=== PATIENT | male | born 2000 | race Two or more races ===

== ENCOUNTER 2023-05-28 09:20 | Emergency (ER) | payer OTHER ==
[~2023-05-28] VITALS: Ht 185.4 cm; Wt 97.5 kg
[2023-05-28 10:50] LABS: HEMATOCRIT 43.8 % (39.0-48.0); HEMOGLOBIN 14.7 g/dL (13-16.00); MEAN CELL VOLUME 81.7 fL (80.0-100.00); MEAN CORPUSCULAR HEMOGLOBIN 27.4 pg (27.00-32.0); MEAN CORPUSCULAR HGB CONC 33.5 g/dl (32.0-36.0); PLATELET COUNT 307 K/uL (150-450); RED BLOOD COUNT 5.36 M/uL (4.00-6.00); RED CELL DISTRIBUTION WIDTH 15.1 % (11.5-14.5)
[2023-05-28 11:27] LABS: ALBUMIN 2.8 gm/dL (3.4-5.0); BILIRUBIN TOTAL 0.6 mg/dL (0.3-1.2); BILIRUBIN,CONJUGATED 0.39 mg/dL (0.0-0.2); BILIRUBIN,UNCONJUGATED 0.21 mg/dL (0.0-0.6); CALCIUM 8.3 mg/dL (8.5-10.1); CREATININE SERUM 0.82 mg/dL (0.70-1.30); GFR 114.47; POTASSIUM 3.06 mEq/L (3.5-5.1); TOTAL PROTEIN 8.8 gm/dL (6.4-8.2)
[2023-05-28 15:26] LABS: PH,URINE 5.5 (5.0-8.0); URINE APPEARANCE Cloudy; URINE BILIRRUBIN Small (NEGATIVE); URINE BLOOD Negative; URINE COLOR Dark Yellow; URINE GLUCOSE Negative (NEGATIVE); URINE LEUKOCYTE Trace; URINE NITRATE Negative
[2023-05-28 15:29] LABS: URINE BACTERIA 210.4 uL (0.0-1933); URINE EPITHELIAL CELLS 22.4 uL (0.0-38.8); URINE RBC 12.7 uL (0.0-20.8)
[2023-05-28 15:59] LABS: URINE PROTEIN 300 (NEGATIVE)
== END 2023-05-28 17:53 | disposition home or self-care (01) ==
LOC: ER 09:20 → EDBD 10:55 → ER 10:55
PROVIDERS: General Practice
DX: R10.84 Generalized abdominal pain (principal); B34.8 Other viral infections of unspecified site